=== PATIENT | female | born 1940 | race Caucasian/White ===

== ENCOUNTER → 2017-04-23 | Outpatient (CLI) | payer OTHER ==
[~2017-04-23] MED LIST: ALPR1TAB3 PO; AMT50 PO; CLR10 PO; GLC500 PO; LEVOTHYROXINE; LISI20TA PO; METO50TA7 PO; MOME50SP5; OMEP40CA PO; OXYC-57 PO; RGL5 PO; SITA100T3 PO; ZNTT/150 PO
[2017-04-23 13:06] LABS: ESTIMATED AVERAGE GLUCOSE 220 mg/dl; HA1C FLAG Normal (Normal)
[2017-04-23 13:22] LABS: ALT/SGPT 23 U/L (12-78); BLOOD UREA NITROGEN 21 mg/dl (7-18); BUN/CREATININE RATIO 20.6 (10-20); CALCIUM 9.2 mg/dl (8.5-10.1); CARBON DIOXIDE 26 mmol/L (21-32); CHLORIDE 105 mmol/L (98-107); CHOLESTEROL 170 mg/dl (0-200); GLUCOSE 248 mg/dl (70-99); POTASSIUM 4.4 mmol/L (3.5-5.1); SODIUM 140 mmol/L (136-145); TRIGLYCERIDES 302 mg/dl (0-150); VERY LOW DENSITY LIPOPROT CALC 60 mg/dl
[2017-04-23 13:37] LABS: CHOLESTEROL/HDL RATIO 3.9; HDL CHOLESTEROL 44 mg/dl; LDL CHOLESTEROL CALCULATED 66 mg/dl
== END | disposition home or self-care (01) ==
LOC: C.LABPBG 10:33
PROVIDERS: ATTEND Family Medicine
DX: I10 Essential (primary) hypertension (principal); E11.9 Type 2 diabetes mellitus without complications; E03.9 Hypothyroidism, unspecified; E78.5 Hyperlipidemia, unspecified

== ENCOUNTER → 2017-12-10 | Outpatient (CLI) | payer OTHER ==
[~2017-12-10] MED LIST changes: -ALPR1TAB3 PO; +AMIT75TA2 PO; -AMT50 PO; +ATOR-24 PO; +BACL10TA PO; -CLR10 PO; -GLC500 PO; +LEVO88TA3 PO; -LEVOTHYROXINE; +LIRA18IN SC; +LISI-725 PO; -LISI20TA PO; +MCRK20 PO; +MECL1TAB42 PO; +METF-384 PO; -METO50TA7 PO; +METO50TA8 PO; +METO5TAB2 PO; +MGNO400 PO; -MOME50SP5; +NRN100 PO; -OMEP40CA PO; -OXYC-57 PO; +OXYC-59 PO; +PANT40TA PO; +PLV75 PO; +RANI150T85 PO; -RGL5 PO; +ROPI2TAB6 PO; -SITA100T3 PO; +TRIA55SP NAE; +VNTHFA/IN INH; +XNX5 PO; -ZNTT/150 PO
== END | disposition home or self-care (01) ==
LOC: C.LABSPEC 11:18
PROVIDERS: ATTEND Family Medicine
DX: R30.0 Dysuria (principal)

== ENCOUNTER → 2018-03-14 | Outpatient (CLI) | payer OTHER ==
[~2018-03-14] MED LIST changes: -OXYC-59 PO; +OXYC10TA2 PO
[2018-03-14 14:09] LABS: HEMOGLOBIN A1C 7.1 % (4.5-5.6)
[2018-03-14 14:23] LABS: ALBUMIN 3.4 gm/dl (3.4-5.0); ALKALINE PHOSPHATASE 84 U/L (45-117); ALT/SGPT 22 U/L (12-78); AST/SGOT 11 U/L (15-37); BLOOD UREA NITROGEN 32 mg/dl (7-18); CALCIUM 8.8 mg/dl (8.5-10.1); CARBON DIOXIDE 27 mmol/L (21-32); CHOLESTEROL 154 mg/dl (0-200); CREATININE 1.03 mg/dl (0.60-1.20); GLUCOSE 163 mg/dl (70-99); LDL CHOLESTEROL CALCULATED 67 mg/dl; POTASSIUM 4.6 mmol/L (3.5-5.1); SODIUM 143 mmol/L (136-145); TOTAL PROTEIN 6.8 gm/dl (6.4-8.2)
[2018-03-14 14:29] LABS: CREATININE RANDOM URINE 63.5 mg/dl
== END | disposition home or self-care (01) ==
LOC: C.LABPBG 08:34
PROVIDERS: ATTEND Family Medicine
DX: E11.9 Type 2 diabetes mellitus without complications (principal)